=== PATIENT | male | born 1995 | race African-American/Black ===

== ENCOUNTER 2020-01-23 19:46 | Emergency (ER) | payer MEDICAID ==
[~2020-01-23] VITALS: Ht 165.1 cm; Wt 83.0 kg
[2020-01-23] MEDS ORDERED: BACITRACIN ZINC OINT UDPKT TOP ONE (20:45)
[2020-01-23] MEDS ORDERED: LIDOCAINE 1%/EPI 1:100,000 10 ML VIAL IJ ONE (20:45)
[2020-01-23] MEDS ORDERED: LIDOCAINE HCL/EPINEPHRINE 1%-EPI 1:100,000 20 ML VIAL INFIL NR (21:00)
[2020-01-23 22:41] VITALS: BP 138/87
[2020-01-23] MEDS ORDERED: SODIUM CHLORIDE 0.9% 1,000 ML IV ONE (22:47)
[2020-01-23] MEDS ORDERED: ACETAMINOPHEN 500MG TABLET PO ONE (23:00)
== END 2020-01-23 23:03 | disposition left against medical advice (07) ==
LOC: ER 19:46
DX: L02.818 Cutaneous abscess of other sites (principal); Z72.0 Tobacco use
CPT/HCPCS: 99283; J3490; J7030